=== PATIENT | female | born 1955 | race African-American/Black ===

== ENCOUNTER 2017-07-22 15:14 | Emergency (ER) | payer MEDICAID, MEDICARE ==
[~2017-07-22] VITALS: Ht 165.1 cm; Wt 77.0 kg
[2017-07-22 17:49] LABS: CLARITY URINE CLEAR (CLEAR); COLOR URINE YELLOW (YELLOW); KETONES URINE NEGATIVE (NEGATIVE); LEUKOCYTE ESTERASE URINE NEGATIVE (NEGATIVE); NITRITE URINE NEGATIVE (NEGATIVE); OCCULT BLOOD URINE NEGATIVE (NEGATIVE); PROTEIN URINE NEGATIVE (NEGATIVE); SPECIFIC GRAVITY URINE 1.043 (1.005-1.030); UROBILINOGEN URINE 0.2 E.U./dL (0.2-1.0)
[2017-07-22 18:15] VITALS: BP 141/62
== END 2017-07-22 18:27 | disposition home or self-care (01) ==
LOC: ER 15:23
DX: R32 Unspecified urinary incontinence (principal); R05 Cough; R10.13 Epigastric pain; E11.9 Type 2 diabetes mellitus without complications; F17.200 Nicotine dependence, unspecified, uncomplicated; Z98.890 Other specified postprocedural states
CPT/HCPCS: 71045; 81003; 99285

== ENCOUNTER 2018-03-22 00:55 | Inpatient (IN) | payer MEDICAID ==
[~2018-03-22] VITALS: Ht 182.9 cm; Wt 68.0 kg
[2018-03-22] MEDS ORDERED: SODIUM CHLORIDE 0.9% 1,000 ML IV ONE (03:07)
[2018-03-22] MEDS ORDERED: IBUPROFEN 600MG TABLET PO ONE (03:15)
[2018-03-22] MEDS ORDERED: LEVOFLOXACIN 750MG PREMIX 150 ML IV ONE (04:15)
[2018-03-22 04:18] LABS: BASOPHILS % 0.6 % (0.0-2.0); EOSINOPHILS % 1.4 % (0.0-5.0); HEMATOCRIT. 43.5 % (36.0-48.0); HEMOGLOBIN. 14.5 g/dL (12.0-16.0); LYMPHOCYTES % 31.7 % (20.0-50.0); MEAN CORPUSCULAR HEMOGLOBIN 30.8 pg (28.0-32.0); MEAN CORPUSCULAR VOLUME 92.5 fL (81.0-99.0); MEAN PLATELET VOLUME 7.9 fl (7.4-10.4); MONOCYTES % 8.1 % (2.0-8.0); NEUTROPHILS % 58.2 % (40.0-76.0); PLATELET 261 x1000/uL (130-400); RED BLOOD CELL COUNT 4.71 mill/uL (4.2-5.4); RED CELL DISTRIBUTION WIDTH 14.4 % (11.6-14.6)
[2018-03-22 04:24] LABS: PROTHROMBIN TIME 10.2 sec (9.1-11.1)
[2018-03-22 04:28] LABS: CHLORIDE 103 mEq/L (98-107)
[2018-03-22] MEDS ORDERED: IPRATROPIUM/ALBUTEROL 0.5-3(2.5)MG/3ML NEB HHN PRN (08:30)
[2018-03-22] MEDS ORDERED: BENZONATATE 100MG CAPSULE PO PRN (08:30)
[2018-03-22] MEDS ORDERED: DEXTROSE 50% WATER 50ML SYRINGE IV PRN (08:30)
[2018-03-22] MEDS ORDERED: NICOTINE 14MG PATCH TD SCH ×2 (09:00→16:00)
[2018-03-22] MEDS: BLOOD SUGAR DIAGNOSTIC STRIP TEST SCH ×4 (13:00→21:38)
[2018-03-22 15:35] VITALS: BP 129/85
[2018-03-22 16:00] VITALS: BP 168/94
[2018-03-22] MEDS: INSULIN LISPRO 100 UNITS/ML SUBCUT SCH ×3 (17:21→21:00)
[2018-03-22 20:00] VITALS: BP 123/66
[2018-03-22] MEDS ORDERED: LEVOFLOXACIN 750MG PREMIX 150 ML IV SCH (21:00)
[2018-03-22] MEDS ORDERED: INSULIN GLARGINE UD 100 UNITS/ML SYR SUBCUT SCH (22:00)
== END 2018-03-23 01:45 | disposition left against medical advice (07) | DRG 139 ==
LOC: ER 00:55 → 7WST 04:16 → EDBEDREQ 04:17 → EDBEDREQTM 04:17 → ENRESERV 13:33
PROVIDERS: ADMIT Internal Medicine; ATTEND Internal Medicine
DX: J18.9 Pneumonia, unspecified organism (principal); E11.65 Type 2 diabetes mellitus with hyperglycemia; E44.1 Mild protein-calorie malnutrition; F17.210 Nicotine dependence, cigarettes, uncomplicated; M10.9 Gout, unspecified; Z53.21 Procedure and treatment not carried out due to patient leaving prior to being seen by health care provider; Z59.0 Homelessness; Z68.20 Body mass index [BMI] 20.0-20.9, adult
CPT/HCPCS: 36415; 71045; 82962; 83036; 83605; 83880; 84145; 84484; 93005; 99285; J1815; J1956; J7030; J7050

== ENCOUNTER 2018-05-09 13:07 | Inpatient (IN) | payer MEDICAID ==
[~2018-05-09] VITALS: Ht 165.1 cm; Wt 70.8 kg
[2018-05-09] MEDS ORDERED: NAPROXEN 375MG TABLET PO ONE (15:45)
[2018-05-09] MEDS ORDERED: TRAMADOL 50MG TABLET PO ONE (15:45)
[2018-05-09] MEDS ORDERED: INSULIN REGULAR (HUMULIN R) UD 100 UNITS/ML SYR SUBCUT ONE (16:00)
[2018-05-09] MEDS ORDERED: INSULIN REGULAR (HUMULIN R) 300UNITS/3ML SUBCUT NR (16:45)
[2018-05-09 16:48] LABS: CLARITY URINE CLEAR (CLEAR); COLOR URINE YELLOW (YELLOW); KETONES URINE 1+ (NEGATIVE); LEUKOCYTE ESTERASE URINE NEGATIVE (NEGATIVE); NITRITE URINE NEGATIVE (NEGATIVE); OCCULT BLOOD URINE NEGATIVE (NEGATIVE); PH URINE 5.5 (4.5-8.0); PROTEIN URINE NEGATIVE (NEGATIVE); SPECIFIC GRAVITY URINE 1.054 (1.005-1.030)
[2018-05-09] MEDS ORDERED: ONDANSETRON HCL 4MG/2ML INJ IV STA (17:36)
[2018-05-09] MEDS ORDERED: MORPHINE SULFATE 4 MG/ML CPJ (NOT FOR IM USE) IV STA (17:36)
[2018-05-09] MEDS ORDERED: SODIUM CHLORIDE 0.9% 1,000 ML IV ONE (17:36)
[2018-05-09] MEDS ORDERED: MORPHINE SULFATE 10 MG/ML CPJ IV NR (17:58)
[2018-05-09 18:08] LABS: BASOPHILS % 0.5 % (0.0-2.0); EOSINOPHILS % 0.6 % (0.0-5.0); HEMATOCRIT. 48.2 % (36.0-48.0); HEMOGLOBIN. 16.4 g/dL (12.0-16.0); LYMPHOCYTES % 30.7 % (20.0-50.0); MEAN CORPUSCULAR HEMOGLOBIN 30.8 pg (28.0-32.0); MEAN CORPUSCULAR VOLUME 90.4 fL (81.0-99.0); MEAN PLATELET VOLUME 8.2 fl (7.4-10.4); MONOCYTES % 6.7 % (2.0-8.0); NEUTROPHILS % 61.5 % (40.0-76.0); PLATELET 309 x1000/uL (130-400); RED BLOOD CELL COUNT 5.33 mill/uL (4.2-5.4); RED CELL DISTRIBUTION WIDTH 13.8 % (11.6-14.6)
[2018-05-09 18:11] LABS: CHLORIDE 97 mEq/L (98-107)
[2018-05-09] MEDS ORDERED: POTASSIUM CHLORIDE 20MEQ TABLET SR PO ONE (18:30)
[2018-05-09 23:25] VITALS: BP 130/83
[2018-05-09] MEDS ORDERED: METF-414 MT (23:59)
[2018-05-10 00:13] VITALS: BP 130/83
[2018-05-10] MEDS: HYDROCODONE/ACETAMINOPHEN 10/325MG TABLET PO PRN ×3 (02:10→17:09)
[2018-05-10 04:00] VITALS: BP 137/85
[2018-05-10] MEDS: BLOOD SUGAR DIAGNOSTIC STRIP TEST SCH ×4 (06:56→21:59)
[2018-05-10 07:47] LABS: BASOPHILS % 0.7 % (0.0-2.0); EOSINOPHILS % 2.1 % (0.0-5.0); HEMATOCRIT. 46.7 % (36.0-48.0); LYMPHOCYTES % 37.4 % (20.0-50.0); MEAN CORPUSCULAR HEMOGLOBIN 31.4 pg (28.0-32.0); MEAN CORPUSCULAR VOLUME 91.7 fL (81.0-99.0); MEAN PLATELET VOLUME 8.7 fl (7.4-10.4); MONOCYTES % 8.3 % (2.0-8.0); NEUTROPHILS % 51.5 % (40.0-76.0); PLATELET 282 x1000/uL (130-400); RED BLOOD CELL COUNT 5.09 mill/uL (4.2-5.4); RED CELL DISTRIBUTION WIDTH 13.6 % (11.6-14.6)
[2018-05-10 08:00] VITALS: BP 137/86
[2018-05-10 08:13] LABS: CHLORIDE 100 mEq/L (98-107)
[2018-05-10] MEDS: INSULIN LISPRO 100 UNITS/ML SUBCUT SCH ×4 (08:50→22:07)
[2018-05-10] MEDS: METFORMIN HCL 500MG TABLET PO SCH ×2 (08:50→17:04)
[2018-05-10] MEDS: ENOXAPARIN 40MG/0.4ML SYR SUBCUT SCH (08:50)
[2018-05-10 08:56] LABS: LDL CHOLESTEROL 115 mg/dL (5-100)
[2018-05-10 08:59] LABS: HDL CHOLESTEROL 32 mg/dL (40-59)
[2018-05-10] MEDS: INFLUENZA VIRUS VACCINE(AFLURIA) 0.5ML SYR IM ONE ×2 (10:00→12:55)
[2018-05-10] MEDS ORDERED: POTASSIUM CHLORIDE 20MEQ TABLET SR PO SCH (10:15)
[2018-05-10 12:00] VITALS: BP 139/81
[2018-05-10] MEDS ORDERED: PNEUMOCOCCAL VACCINE IM ONE (12:15)
[2018-05-10 16:00] VITALS: BP 143/85
[2018-05-10 20:00] VITALS: BP 159/103
[2018-05-10] MEDS: MORPHINE SULFATE 10 MG/ML CPJ IV PRN (20:36)
[2018-05-10] MEDS: INSULIN GLARGINE UD 100 UNITS/ML SYR SUBCUT SCH (21:59)
[2018-05-11] VITALS: BP 166/99
[2018-05-11] MEDS: MORPHINE SULFATE 10 MG/ML CPJ IV PRN ×6 (00:43→22:17)
[2018-05-11 04:00] VITALS: BP 160/85
[2018-05-11] MEDS: GLIPIZIDE 10MG TABLET PO SCH (06:31)
[2018-05-11] MEDS: BLOOD SUGAR DIAGNOSTIC STRIP TEST SCH ×4 (06:33→21:00)
[2018-05-11 07:05] LABS: BASOPHILS % 0.5 % (0.0-2.0); HEMATOCRIT. 43.6 % (36.0-48.0); HEMOGLOBIN. 14.9 g/dL (12.0-16.0); LYMPHOCYTES % 45.3 % (20.0-50.0); MEAN CORPUSCULAR HEMOGLOBIN 30.9 pg (28.0-32.0); MEAN CORPUSCULAR VOLUME 90.5 fL (81.0-99.0); MEAN PLATELET VOLUME 8.3 fl (7.4-10.4); MONOCYTES % 7.4 % (2.0-8.0); NEUTROPHILS % 44.8 % (40.0-76.0); PLATELET 288 x1000/uL (130-400); RED BLOOD CELL COUNT 4.81 mill/uL (4.2-5.4); RED CELL DISTRIBUTION WIDTH 13.4 % (11.6-14.6)
[2018-05-11 07:16] LABS: CHLORIDE 100 mEq/L (98-107)
[2018-05-11] MEDS: INSULIN LISPRO 100 UNITS/ML SUBCUT SCH ×4 (07:50→21:00)
[2018-05-11 08:00] VITALS: BP 196/93
[2018-05-11] MEDS: METFORMIN HCL 500MG TABLET PO SCH ×2 (08:44→17:29)
[2018-05-11] MEDS: ATORVASTATIN CALCIUM 40MG TABLET PO SCH (08:44)
[2018-05-11] MEDS: ENOXAPARIN 40MG/0.4ML SYR SUBCUT SCH (08:45)
[2018-05-11] MEDS: CLONIDINE 0.1MG TABLET PO PRN (08:45)
[2018-05-11] MEDS: INSULIN GLARGINE UD 100 UNITS/ML SYR SUBCUT SCH ×2 (10:40→22:22)
[2018-05-11 12:00] VITALS: BP 131/78
[2018-05-11] MEDS ORDERED: POTASSIUM CHLORIDE 20MEQ TABLET SR PO NR (13:15)
[2018-05-11 16:00] VITALS: BP 114/78
[2018-05-11 20:00] VITALS: BP 132/84
[2018-05-12] VITALS: BP 133/86
[2018-05-12] MEDS: MORPHINE SULFATE 10 MG/ML CPJ IV PRN ×4 (03:50→18:04)
[2018-05-12 04:00] VITALS: BP 139/83
[2018-05-12] MEDS: GLIPIZIDE 10MG TABLET PO SCH (06:21)
[2018-05-12] MEDS: DEXTROSE 50% WATER 50ML SYRINGE IV PRN ×2 (06:27→18:38)
[2018-05-12] MEDS: BLOOD SUGAR DIAGNOSTIC STRIP TEST SCH ×4 (07:17→21:00)
[2018-05-12] MEDS: METFORMIN HCL 500MG TABLET PO SCH ×2 (07:59→18:03)
[2018-05-12 08:00] VITALS: BP 178/98
[2018-05-12] MEDS: CLONIDINE 0.1MG TABLET PO PRN (08:00)
[2018-05-12] MEDS: ENOXAPARIN 40MG/0.4ML SYR SUBCUT SCH (08:00)
[2018-05-12] MEDS: ATORVASTATIN CALCIUM 40MG TABLET PO SCH (08:00)
[2018-05-12] MEDS: INSULIN LISPRO 100 UNITS/ML SUBCUT SCH ×4 (08:04→21:00)
[2018-05-12] MEDS: INSULIN GLARGINE UD 100 UNITS/ML SYR SUBCUT SCH ×2 (10:12→22:00)
[2018-05-12] MEDS: HYDROCODONE/ACETAMINOPHEN 10/325MG TABLET PO PRN ×2 (10:54→22:31)
[2018-05-12 12:00] VITALS: BP 155/89
[2018-05-12 16:00] VITALS: BP 140/84
[2018-05-12 20:00] VITALS: BP 130/100
[2018-05-13] VITALS (8 sets, daily range): BP systolic 130–168; BP diastolic 74–93
[2018-05-13] MEDS: MORPHINE SULFATE 10 MG/ML CPJ IV PRN ×2 (00:12→23:30)
[2018-05-13] MEDS: INSULIN LISPRO 100 UNITS/ML SUBCUT SCH ×4 (07:50→20:37)
[2018-05-13] MEDS: BLOOD SUGAR DIAGNOSTIC STRIP TEST SCH ×4 (08:12→20:37)
[2018-05-13] MEDS: ATORVASTATIN CALCIUM 40MG TABLET PO SCH (08:36)
[2018-05-13] MEDS: METFORMIN HCL 500MG TABLET PO SCH ×3 (08:36→18:10)
[2018-05-13] MEDS: ENOXAPARIN 40MG/0.4ML SYR SUBCUT SCH (08:36)
[2018-05-13] MEDS: INSULIN GLARGINE UD 100 UNITS/ML SYR SUBCUT SCH ×2 (10:37→22:00)
[2018-05-13] MEDS: HYDROCODONE/ACETAMINOPHEN 10/325MG TABLET PO PRN ×3 (13:40→23:19)
[2018-05-13] MEDS ORDERED: ARIPIPRAZOLE 10MG TABLET PO NR (18:00)
[2018-05-13] MEDS: DEXTROSE 50% WATER 50ML SYRINGE IV PRN (19:02)
[2018-05-14] VITALS (7 sets, daily range): BP systolic 150–173; BP diastolic 84–100
[2018-05-14] MEDS: MORPHINE SULFATE 10 MG/ML CPJ IV PRN ×2 (04:45→20:10)
[2018-05-14] MEDS: METFORMIN HCL 500MG TABLET PO SCH ×2 (06:58→17:38)
[2018-05-14 07:28] LABS: BASOPHILS % 0.6 % (0.0-2.0); HEMATOCRIT. 45.2 % (36.0-48.0); HEMOGLOBIN. 15.4 g/dL (12.0-16.0); LYMPHOCYTES % 34.7 % (20.0-50.0); MEAN CORPUSCULAR HEMOGLOBIN 31.2 pg (28.0-32.0); MEAN CORPUSCULAR VOLUME 91.6 fL (81.0-99.0); MEAN PLATELET VOLUME 8.2 fl (7.4-10.4); NEUTROPHILS % 53.7 % (40.0-76.0); PLATELET 271 x1000/uL (130-400); RED BLOOD CELL COUNT 4.93 mill/uL (4.2-5.4); RED CELL DISTRIBUTION WIDTH 13.7 % (11.6-14.6)
[2018-05-14 07:29] LABS: CHLORIDE 98 mEq/L (98-107)
[2018-05-14] MEDS: BLOOD SUGAR DIAGNOSTIC STRIP TEST SCH ×4 (07:50→20:33)
[2018-05-14] MEDS: INSULIN LISPRO 100 UNITS/ML SUBCUT SCH ×4 (07:50→21:31)
[2018-05-14] MEDS: ATORVASTATIN CALCIUM 40MG TABLET PO SCH (08:35)
[2018-05-14] MEDS: ENOXAPARIN 40MG/0.4ML SYR SUBCUT SCH (08:44)
[2018-05-14] MEDS: INSULIN GLARGINE UD 100 UNITS/ML SYR SUBCUT SCH ×2 (11:02→21:33)
[2018-05-14] MEDS: HYDROCODONE/ACETAMINOPHEN 10/325MG TABLET PO PRN (12:31)
[2018-05-14] MEDS: ARIPIPRAZOLE 5MG TABLET PO SCH (17:49)
[2018-05-14] MEDS: CLONIDINE 0.1MG TABLET PO PRN (17:50)
[2018-05-15] VITALS (7 sets, daily range): BP systolic 121–143; BP diastolic 69–87
[2018-05-15] MEDS: MORPHINE SULFATE 10 MG/ML CPJ IV PRN ×4 (00:20→17:08)
[2018-05-15] MEDS: METFORMIN HCL 500MG TABLET PO SCH ×2 (07:32→17:02)
[2018-05-15] MEDS: INSULIN LISPRO 100 UNITS/ML SUBCUT SCH ×3 (07:32→17:04)
[2018-05-15] MEDS: ENOXAPARIN 40MG/0.4ML SYR SUBCUT SCH (08:22)
[2018-05-15] MEDS: ATORVASTATIN CALCIUM 40MG TABLET PO SCH (08:22)
[2018-05-15] MEDS: ARIPIPRAZOLE 5MG TABLET PO SCH (08:22)
[2018-05-15] MEDS: INSULIN GLARGINE UD 100 UNITS/ML SYR SUBCUT SCH (09:34)
[2018-05-15] MEDS: BLOOD SUGAR DIAGNOSTIC STRIP TEST SCH ×2 (11:39→16:22)
[2018-05-15] MEDS ORDERED: HYDROCODONE/ACETAMINOPHEN 10/325MG TABLET PO PRN (18:00)
== END 2018-05-15 20:20 | DRG 347 ==
LOC: ER 13:07 → 6EST 18:22
PROVIDERS: ADMIT Internal Medicine; ATTEND Internal Medicine
DX: M48.061 Spinal stenosis, lumbar region without neurogenic claudication (principal); E11.65 Type 2 diabetes mellitus with hyperglycemia; E87.8 Other disorders of electrolyte and fluid balance, not elsewhere classified; M48.56XA Collapsed vertebra, not elsewhere classified, lumbar region, initial encounter for fracture; M47.897 Other spondylosis, lumbosacral region; E87.6 Hypokalemia; M16.0 Bilateral primary osteoarthritis of hip; R32 Unspecified urinary incontinence; F17.200 Nicotine dependence, unspecified, uncomplicated; Z79.4 Long term (current) use of insulin; X50.0XXA Overexertion from strenuous movement or load, initial encounter; X50.9XXA Other and unspecified overexertion or strenuous movements or postures, initial encounter; Y93.89 Activity, other specified; Y92.89 Other specified places as the place of occurrence of the external cause; Y99.8 Other external cause status; Z71.6 Tobacco abuse counseling
CPT/HCPCS: 36415; 71045; 72100; 72148; 73502; 80048; 80061; 82962; 83036; 90686; 90732; 93005; 96361; 96372; 96374; 96375; 97116; 97162; 97530; 99285; J1650; J1815; J2270; J2405; J7030

== ENCOUNTER 2018-06-23 11:07 | Emergency (ER) | payer MEDICAID, OTHER ==
[~2018-06-23] VITALS: Ht 165.1 cm; Wt 71.0 kg
[2018-06-23] MEDS ORDERED: METHOCARBAMOL 500MG TABLET PO ONE (13:45)
[2018-06-23] MEDS ORDERED: KETOROLAC 30MG/ML VIAL IM ONE (13:45)
[2018-06-23 14:03] VITALS: BP 151/91
== END 2018-06-23 20:01 | disposition home or self-care (01) ==
LOC: ER 11:07
DX: M54.40 Lumbago with sciatica, unspecified side (principal); E11.9 Type 2 diabetes mellitus without complications; F17.200 Nicotine dependence, unspecified, uncomplicated
CPT/HCPCS: 96372; 99283; J1885